=== PATIENT | male | born 1945 | race Caucasian/White ===

== ENCOUNTER 2016-10-14 07:54 | Outpatient (CLI) | payer MEDICARE ==
[~2016-10-14] VITALS: Ht 175.3 cm; Wt 114.7 kg
--- NOTE | ~2016-10-14 | CATH ---
Cardiac Diagnostic Report Demographics Patient Name GOYO Funes Gender Male Date of 1945 Age 71 year(s) Patient Number [id number] Date of Study 10/14/2016 Visit Number [id number] Room Number G6399 [place] [id number] Ht 175.2 cm Wt 114.7 kg Referring Kyler Phillips MD Primary Physician Physician Performing Kyler Phillips MD Secondary Physician Physician Diagnostic Kyler Phillips MD Assisting Physician Physician Interventional Physician Lens Polisher Hand Physician Findings and Conclusions Diagnostic Findings and Conclusion One vessel CAD LV dysfunction Severe Pulmonary Hypertension Diagnostic Recommendations Medical therapy Re-evaluation of LV function in November (3 months) Procedure Description The patient was brought to the diagnostic cardiac catheterization-EP laboratory in the fasting, non-sedated state. Informed consent was obtained in the written and verbal form after the risks and benefits were explained. The patient had no further questions and agreed to proceed. The planned puncture-incision site(s) were shaved and prepped with ChloraPrep and draped in the usual sterile manner. Conscious sedation, supplemental oxygen, and pain control medications were delivered by a registered nurse under physician guidance. Surface ECG rhythm, blood pressure measurement, and pulse oximetry were monitored throughout the procedure. Arterial access. The access site was infiltrated with lidocaine. The vessel was entered with the Seldinger technique. A sheath was advanced into the vessel and used for catheter placement. Venous access. The access site was infiltrated with 2% lidocaine. The vessel was entered with the Seldinger technique. A sheath was advanced into the vessel and used for catheter placement. Right heart catheterization. A [place] catheter was successfully advanced to the right atrium, right ventricle, pulmonary artery, and pulmonary artery wedge position under fluoroscopic guidance. Resting hemodynamics were obtained. Measurements included pressures, arterial and venous oxygen saturation samples, and cardiac output. The [place] was removed without difficulty. Selective left coronary angiography. A catheter was advanced into the left coronary vessel ostium under Fluoroscopic guidance. Contrast was injected by hand. Images were obtained in multiple projections. Selective right coronary angiography. A catheter was advanced into the right coronary vessel ostium under fluoroscopic guidance. Contrast was injected by hand. Images were obtained in multiple projections. Arterial and Venous hemostasis was achieved. The patient was transferred to a regular nursing floor via cart accompanied by a nurse. The patient left the laboratory in stable condition. Procedure Procedure Type Diagnostic procedure The procedure was explained in detail to the patient. Risks, complications and alternative treatments were reviewed. Written consent was obtained. Medications Reviewed with Patient prior to Procedure. Angiographic Findings Dominance: Mixed Cardiac Arteries and Lesion Findings LMCA: Abnormal.Large calcified LAD: Abnormal.heavily calcified Left to right collaterals Diag 1 medium ostial 50% LCx: Normal (0% Stenosis).large co-dominant RCA: Abnormal.large 100% mid occlusion Procedure Data Procedure Date Date: 10/14/2016Start: 11:08 AMEnd: 12:03 PM Entry Locations - Retrograde Percutaneous access was performed through the Right Femoral artery (Primary location). A 6 Fr sheath was inserted. Procedure Medications Order and Administration + + + +-------+ !Time !Medication !Dosage !Route ! + + + +-------+ 10/14/2016 11:24 AM !Versed !1 mg !I.V. ! + + + +-------10/14/2016 11:24 AM !Fentanyl !50 mcg ! ! + + + +-------10/14/2016 11:29 AM !Oxygen !4 l/min ! ! + + + +-------+ !10/14/2016 11:32 AM !Oxygen !6 l/min ! ! + + + +-------+ Devices Used - A6 Fr. BS JL 4 Diag. Catheterwas used for:Left coronary angiography. - A6 Fr. BS JR 4 Diag. Catheterwas used for:Right coronary angiography. Contrast Material - Isovue [id number] ml Fluoroscopy Time: Diagnostic: 6:42 minutes. Total: 6:42 minutes. Fluoroscopy Dose: Diagnostic: 1273 mGy. Total: 1273 mGy. Estimated Blood Loss: 5 ml. Medical History Allergies - No known allergies. Risk Factors The patient risk factors include:treated hypercholesterolemia, treated hypertension, insulin-treated diabetes mellitus, last creatinine: 1.6 mg/dl, creatinine clearance: 69.7 ml/min, dyslipidemia, former tobacco use and prior heart failure . Admission Data Admission Date: 10/14/2016 Admission Time: 07:54 AM Insurance Payors: Medicare. Admission Medications + +------+------+ + + + + !Medication !Dosage!Times !Last !Last !Administered !Comments ! ! ! !Per !Delivery !Delivery ! ! ! ! ! !Day !Date !Time ! ! ! + +------+------+ + + + + !Statin ! ! !10/13/2016 !12:00 AM !Yes ! ! !(any) ! ! ! ! ! ! ! + +------+------+ + + + + !Beta ! ! !10/14/2016 !12:00 AM !Yes ! ! !Sol ! ! ! ! ! ! ! !(any) ! ! ! ! ! ! ! + +------+------+ + + + + Clinical Evaluation Leading to Procedure Diagnosed on 10/14/2016 09:00 AM. - The patient's CAD presentation was assessed as: Unstable angina. - The patient's anginal syndrome during the past two weeks was assessed as: Class III according to the [place] Cardiovascular Society Classification System (CCS). Anti-anginal medications were prescribed during the past two weeks. The medication is: Beta Blockers. - The patient has been in a state of heart failure within the past two weeks. - The patient's heart failure status was assessed as NYHA Class III. 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 Hemodynamics Condition: Rest O2 Consumption: Estimated: 259.35Heart Rate: 65 bpm Oxygen Saturation +--------+-----+----+ +----+ + !Location!pCO2 !pO2 !% Saturation !Hgb !O2 Content ! +--------+-----+----+ +----+ + !SVC ! ! !57.4 !13.6! ! +--------+-----+----+ +----+ + !IVC ! ! !60.2 !13.6! ! +--------+-----+----+ +----+ + !RA ! ! !52.6 !13.6! ! +--------+-----+----+ +----+ + !PA ! ! !58.8 !13.6! ! +--------+-----+----+ +----+ + !FA ! ! !89.6 !13.6! ! +--------+-----+----+ +----+ + Pressures (mmHg) +-----+ + !Site !Pressure ! +-----+ + !AO !/ (232) ! +-----+ + !RA !03/02 (10) ! +-----+ + !AO !/ (231) ! +-----+ + !RV !78/2 ,17 ! +-----+ + !AO !/ (230) ! +-----+ + !PCW !28/36 (29) ! +-----+ + !AO !/ (229) ! +-----+ + !PCW !33/42 (30) ! +-----+ + !AO !/ (230) ! +-----+ + !PA !74/25 (41) ! +-----+ + !LV !159/9 ,22 ! +-----+ + !PCW ! (22) ! +-----+ + !AO !162/ (63) ! +-----+ + !PA !55/16 (34) ! +-----+ + !AO !163/ (110) ! +-----+ + !LV !162/8 ,22 ! +-----+ + !AO !155/68 (99) ! +-----+ + Cardiac Output + + +------+ !Time !Cardiac Output (l/min) !Use ! + + +------+ !10/14/2016 11:32 AM !5.23 !False ! + + +------+ !10/14/2016 11:33 AM !4.47 !True ! + + +------+ !10/14/2016 11:34 AM !4.68 !True ! + + +------+ !10/14/2016 11:34 AM !4.36 !False ! + + +------+ !10/14/2016 11:35 AM !4.66 !True ! + + +------+ Cardiac Output +-------+ + + + !Method !CO (l/min) !CI (l/min/m2) !SV (ml) ! +-------+ + + + !Rodriguez !4.55 !2 !70.3 ! +-------+ + + + !Thermal![id number] !2 !71.93 ! +-------+ + + + Valve Gradients and Areas + +--------+--------+--------+---------+ + + !Valve !Peak !Mean !Area !Index !Flow !Source ! + +--------+--------+--------+---------+ + + !Aortic !0 !0 ! ! !450.94 !Rodriguez ! + +--------+--------+--------+---------+ + + !Aortic !0 !0 ! ! !456.23 !Thermal ! + +--------+--------+--------+---------+ + + Shunts Oxygen Values O2 Capacity 184.96 O2 Consumption 259.35 Flows (l/min) Qs 4.45 Vascular Resistance (dynes x sec x cm-5) + +-----+-----+----+----+---------+-------+ !CO method !TSVR !SVR !TPVR!PVR !TPVR/TSVR!PVR/SVR! + +-----+-----+----+----+---------+-------+ !Rodriguez !21.83!19.74!7.5 !2.66!0.34 !0.13 ! + +-----+-----+----+----+---------+-------+ !Thermal !21.57!19.51!7.41!2.63!0.34 !0.13 ! + +-----+-----+----+----+---------+-------+ !Qp or Qs !22.32!20.18! ! ! ! ! + +-----+-----+----+----+---------+-------+ Discharge Data Discharge Date: 10/14/2016 Hospital Status: Outpatient Signatures dtt: Alan Chávez (cardio) dtd: 10/14/16 1108 Physician Self Edit
[~2016-10-14 07:54] MED LIST: ACETAMINOPHEN1 EAC2 PO; AMARYL4 MG PO; CIPRO500 MG PO; COLACE100 MG PO; CORDARONE,PACE200 MG PO; COUMADIN **IA2.5 MG PO; DIFLUCAN100 MG PO; FLOMAX0.4 MG PO; GLUCOPHAGE500 MG PO; HUMALOG MI100 UNIT/3 SUB-Q; LEVEMIR FL100 UNIT/1 SUB-Q; LIPITOR80 MG PO; LOPRESSOR25 MG PO; NAC600 MG PO; POTASSIUM CHLO20 ME2 PO; PRINCIPEN 250250 MG PO; PROTONIX40 MG PO; SENOKOT-S TABL1 EACH PO; TRESIBA FL200 UNIT/1 SUB-Q; ZOCOR10 MG PO
[2016-10-14] MEDS ORDERED: ZESTRIL2.5 MG PO (12:33)
[2016-10-14] MEDS ORDERED: LASIX20 MG PO ×2 (12:34→12:35)
== END 2016-10-14 18:20 | disposition disaster alternative care site (69) ==
LOC: GCAT 07:54 → GPCU 07:54 → GCAT 18:20
PROC: 4A023N6 Measurement of Cardiac Sampling and Pressure, Right Heart, Percutaneous Approach (ICD-10-PCS; principal; 2016-10-14)
PROC: B216YZZ Fluoroscopy of Right and Left Heart using Other Contrast (ICD-10-PCS; 2016-10-14)
DX: I42.9 Cardiomyopathy, unspecified (principal)
CPT/HCPCS: J1644; J2001; J2250; J3010; J7030; J7060